=== PATIENT | female | born 2000 | race Caucasian/White ===

== ENCOUNTER 2018-03-16 03:44 | Emergency (ER) | payer MEDICAID ==
[~2018-03-16] VITALS: Ht 157.5 cm; Wt 54.4 kg
[2018-03-16 04:40] VITALS: BP 100/75
== END 2018-03-16 04:40 | disposition home or self-care (01) ==
LOC: ED 03:44
DX: R11.2 Nausea with vomiting, unspecified (principal); R07.89 Other chest pain; R10.9 Unspecified abdominal pain
CPT/HCPCS: J1885; Q0162